=== PATIENT | female | born 1985 | race Caucasian/White ===

== ENCOUNTER 2017-09-13 23:27 | Inpatient (IN) | payer BC ==
[~2017-09-13] VITALS: Ht 170.2 cm; Wt 93.9 kg
[~2017-09-13 23:27] MED LIST: ENDOCET 5-3251 EACH PO; IBUPROFEN800 MG PO; Motrin PO; NATALCARE RX1 TABLE1 PO; Percocet 5/325,Endoc PO; TIROSINT100 MCG PO
[2017-09-13 23:36] VITALS: BP 138/86
[2017-09-14 00:05] VITALS: BP 123/87
[2017-09-14] MEDS ORDERED: SYNTHROID88 MCG PO (00:16)
[2017-09-14 00:20] VITALS: BP 132/63
[2017-09-14] MEDS ORDERED: IBUPROFEN800 MG PO (00:32)
[2017-09-14 00:35] VITALS: BP 134/86
[2017-09-14 00:49] VITALS: BP 122/71
[2017-09-14 02:29] VITALS: BP 140/80
[2017-09-14 07:19] VITALS: BP 138/79
[2017-09-15 06:58] LABS: BASOPHIL (%) 0.2 % (0-1); EOSINOPHIL (%) 0.7 % (0-5); EOSINOPHIL COUNT 0.1 K/uL (0-0.3); HEMATOCRIT 39.4 % (36.0-46.0); HEMOGLOBIN 13.2 G/DL (11.9-15.5); IMMATURE GRANULOCYTE (%) 0.4 % (0.0-0.7); LYMPHOCYTE (%) 13.8 % (15-42); LYMPHOCYTE COUNT 1.4 K/uL (1.0-2.8); MCH 31.4 PG (29.0-34.0); MCHC 33.5 G/DL (30.0-36.0); MCV 93.8 FL (83-99); MONOCYTE (%) 6.4 % (3-12); MONOCYTE COUNT 0.6 K/uL (0-0.8); NEUTROPHIL (%) 78.5 % (45-76); NEUTROPHIL COUNT 7.7 K/uL (1.8-6.4); PLATELET COUNT 146 K/uL (156-360); RBC DIS.WIDTH-CV 13.8 % (11.8-14.6); RBC DIS.WIDTH-SD 46.5 % (39-53); WHITE BLOOD COUNT 9.8 K/uL (4.1-10.2)
[2017-09-15 07:06] VITALS: BP 128/76
[2017-09-15 15:42] VITALS: BP 137/79
== END 2017-09-15 19:25 | disposition home or self-care (01) | DRG 775 ==
LOC: LDRP-OP 23:27 → 2WEST 23:28 → LDRP-OP 10-23 13:47
PROVIDERS: Midwife
PROC: 10E0XZZ Delivery of Products of Conception, External Approach (ICD-10-PCS; principal; 2017-09-13)
DX: O99.824 Streptococcus B carrier state complicating childbirth (principal); O62.3 Precipitate labor; Z37.0 Single live birth; O99.284 Endocrine, nutritional and metabolic diseases complicating childbirth; E03.9 Hypothyroidism, unspecified; Z3A.38 38 weeks gestation of pregnancy
CPT/HCPCS: 85025; J2590